=== PATIENT | male | born 1965 | race African-American/Black ===

== ENCOUNTER 2017-01-03 18:12 | Emergency (ER) | payer MEDICAID ==
[~2017-01-03] VITALS: Ht 190.5 cm; Wt 100.0 kg
[2017-01-03 20:45] VITALS: BP 128/76
[2017-01-03] MEDS ORDERED: KETOROLAC 60MG/2ML VIAL IM ONE (20:45)
== END 2017-01-03 21:05 | disposition home or self-care (01) ==
LOC: ER 19:51
DX: K08.89 Other specified disorders of teeth and supporting structures (principal)
CPT/HCPCS: 96372; 99283; J1885